=== PATIENT | male | born 1945 | race Caucasian/White ===

== ENCOUNTER → 2017-01-18 | Outpatient (CLI) | payer OTHER | END | disposition home or self-care (01) | LOC: PCVCIMAG 15:21 | PROVIDERS: ATTEND Internal Medicine Cardiovascular Disease | DX: I65.23 Occlusion and stenosis of bilateral carotid arteries (principal); E78.00 Pure hypercholesterolemia, unspecified; I25.5 Ischemic cardiomyopathy; I44.2 Atrioventricular block, complete; I25.10 Atherosclerotic heart disease of native coronary artery without angina pectoris; I10 Essential (primary) hypertension; Z95.1 Presence of aortocoronary bypass graft; Z95.0 Presence of cardiac pacemaker | CPT/HCPCS: 80061; 93880; G0463 ==

== ENCOUNTER → 2017-01-23 | Outpatient (CLI) | payer OTHER | END | disposition home or self-care (01) | LOC: PCVCIMAG 08:24 | PROVIDERS: ATTEND Internal Medicine Cardiovascular Disease | DX: I10 Essential (primary) hypertension (principal); E78.00 Pure hypercholesterolemia, unspecified; Z95.1 Presence of aortocoronary bypass graft; Z95.0 Presence of cardiac pacemaker | CPT/HCPCS: 93306 ==

== ENCOUNTER → 2017-10-17 | Outpatient (CLI) | payer OTHER | END | disposition home or self-care (01) | LOC: PCVCCLINIC 13:23 | PROVIDERS: ATTEND Internal Medicine Cardiovascular Disease | DX: I25.810 Atherosclerosis of coronary artery bypass graft(s) without angina pectoris (principal); I42.8 Other cardiomyopathies; I49.5 Sick sinus syndrome; I10 Essential (primary) hypertension; Z95.1 Presence of aortocoronary bypass graft; Z95.0 Presence of cardiac pacemaker; Z87.891 Personal history of nicotine dependence; Z79.82 Long term (current) use of aspirin; Z79.899 Other long term (current) drug therapy | CPT/HCPCS: 80061; 93005; G0463 ==

== ENCOUNTER → 2018-09-17 | Outpatient (CLI) | payer OTHER ==
--- NOTE | 2018-09-17 16:43 | PCVCIMAG ---
APPROVED REPORT Study performed: 09/17/2018 08:20:54 EXAM: Comprehensive 2D, Doppler, and color-flow Echocardiogram Patient Location: Echo lab Status: routine BSA: 1.95 HR: 67 bpmBP: 140/80 mmHg Rhythm: NSR Other Information Study Quality: Good Risk Factors: Cardiac Risk Factors: HTN, Hyperlipidemia, SOB Indications Pacemaker Hypertension/HDD CABG, Hyperlipidemia, Heart block 2D Dimensions IVSd: 11.06 (7-11mm)LVOT Diam: 21.13 (18-24mm) LVDd: 36.88 mm PWd: 9.57 (7-11mm)Ascending Ao: 39.56 (22-36mm) LVDs: 19.83 (25-40mm) Left Atrium: 33.84 (27-40mm) Aortic Root: 28.75 mm LV Single Plane 4CH: 41.43 % Volumes Left Atrial Volume (Systole) Single Plane 4CH: 48.97 mLSingle Plane 2CH: 66.23 mL LA ESV Index: 29.00 mL/m2 Aortic Valve AoV Peak Derrick.: 1.42 m/s AO Peak Gr.: 8.49 mmHgLVOT Max P.44 mmHg LVOT Mean P.69 mmHg LVOT Max V: 0.93 m/s LVOT Mean V: 0.60 m/s LVOT V1 VTI: 21.09 cm JAKE Vmax: 2.29 cm2 SV (LVOT): 73.91 mL Mitral Valve E/A Ratio: 1.1 MV Decel. Time: 380.84 ms MV E Max Derrick.: 1.25 m/s MV A Derrick.: 1.18 m/s Pulmonary Valve PV Peak Gr.: 3.41 mmHg Tricuspid Valve TR Peak Derrick.: 2.70 m/s TR Peak Gr.: 29.27 mmHg Left Ventricle The left ventricle is normal size. Apical hypokinesis. There is normal left ventricular wall thickness. Left ventricular systolic function is mildly decreased. LVEF is 45%. This study is not technically sufficient to allow evaluation of the LV diastolic function. Right Ventricle The right ventricle is normal size. The right ventricular systolic function is normal. Pacemaker lead is present in the right ventricle. Atria The left atrium size is normal. Pacemaker lead is present in the right atrium. Aortic Valve The Aortic valve is sclerotic. No aortic regurgitation is present. There is no aortic valvular stenosis. Mitral Valve Mitral valve leaflets are calcified. Mild to moderate mitral regurgitation. No evidence of mitral valve stenosis. Tricuspid Valve The tricuspid valve is normal in structure. Mild to moderate tricuspid regurgitation. Pulmonary artery pressure is 39mmHg. Pulmonic Valve The pulmonary valve is normal in structure. There is no pulmonic valvular regurgitation. Great Vessels The aortic root is normal in size. The ascending aorta is borderline dilated measuring 4.0cm. IVC is normal in size and collapses >50% with inspiration. Pericardium There is no pericardial effusion. <Conclusion> Left ventricular systolic function is mildly decreased. LVEF is 45%. This study is not technically sufficient to allow evaluation of the LV diastolic function. The right ventricle is normal size. The left atrium size is normal. The Aortic valve is sclerotic. There is no aortic valvular stenosis. Mild to moderate mitral regurgitation. Mild to moderate tricuspid regurgitation. Pulmonary artery pressure is 39mmHg. The aortic root is normal in size. There is no pericardial effusion.
--- NOTE | 2018-09-17 16:47 | PCVCIMAG ---
APPROVED REPORT Imaging Protocol: Rest Tc-99m/Stress Tc-99m 1 day Study performed: 09/17/2018 09:09:34 Indication: CAD, Ischemic Cardiomyopathy, Chest Pressure, SOA Patient Location: Out-Patient Stress Nurse: Ivett Burns RN, Berta Sheth RN NM Tech:Dilip SilveiraKEMAR Ht: 6 ft 0 in Wt: 164 lbs BSA: 1.96 m2 HR: 70 bpm BP: 169/89 mmHg BMI: 22.2 Rhythm: Sinus Rhythm, First degree AV Block, Paced Medical History Medical History: Age,Hyperlipidemia, HTN, CVD, Former Smoker, Pacemaker Medications: ASA, Atorvastatin, Accupril, HCTZ Allergies: No known drug allergies Previous Cardiac Procedures: CABG Pretest Chest Pain Characteristics: No chest pain Exercise History: Physically active Resting Data Rest SPECT myocardial perfusion imaging was performed in supine position 45 minutes following the intravenous injection of 12 mCi of Tc-99m Sestamibi. Time of rest injection: 0900 Date: 09/17/2018 Administration Route: IV Administration Site: Right Hand Pharmacologic Stress Pharmacologic stress test was performed by injecting Regadenoson 0.4 mg IV push over 10-15 seconds immediately followed by the intravenous injection of 36 mCi of Tc-99m Sestamibi. Time of stress injection: 1005 Date: 09/17/2018 Administration Route: IV Administration Site: Right Hand Gated Stress SPECT was performed 45 minutes after stress injection. The images were gated to evaluate regional wall motion and calculate left ventricular ejection fraction. Stress Test Details Stress Test: Pharmacologic stress was paired with low level exercise. Reason for pharmacologic stress test: PPM. HRMax Heart Rate (APMHR): 149 bpm Resting HR: 70 bpmTarget HR (85% APMHR): 126 bpm Max HR Achieved: 99 bpm % of APMHR: 66 Recovery HR: 73 bpm BP Resting BP: 169/86 mmHg Recovery BP: 151/63 mmHg ECG Resting ECst degree AV block, Paced Stress ECst degree AV block, Paced Arrhythmia: None Recovery ECst degree AV block, Paced Clinical Reason for Termination: Completed protocol Stress Symptoms: Nausea Exercise duration: 4 min sec Symptoms resolved with caffeine. Stress ECG Conclusion non diagnostic paced Study Quality Study: Good Study Data Post stress, the left ventricular ejection was 52%.. SSS: 14 SRS: 13 SDS: 1 TID = 1.10. 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 No evidence of stress induced ischemia. 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 No evidence of stress induced ischemia. Post stress, the left ventricular ejection was 52%. No change since prior study dated January 2016. Interpreted by: Grant Schrader MD Electronically Approved: 09/17/2018 14:20:24 <Conclusion> non diagnostic paced
== END | disposition home or self-care (01) ==
LOC: PCVCIMAG 08:29
PROVIDERS: ATTEND Internal Medicine Cardiovascular Disease
DX: I25.810 Atherosclerosis of coronary artery bypass graft(s) without angina pectoris (principal); I42.8 Other cardiomyopathies; R07.89 Other chest pain; R06.02 Shortness of breath; I49.5 Sick sinus syndrome; I10 Essential (primary) hypertension; I08.1 Rheumatic disorders of both mitral and tricuspid valves; E78.5 Hyperlipidemia, unspecified; Z87.891 Personal history of nicotine dependence
CPT/HCPCS: 78452; 93017; 93306; A9500

== ENCOUNTER → 2019-03-05 | Outpatient (CLI) | payer OTHER | END | disposition home or self-care (01) | LOC: PCVCCLINIC 16:02 | PROVIDERS: ATTEND Internal Medicine Cardiovascular Disease | DX: I25.10 Atherosclerotic heart disease of native coronary artery without angina pectoris (principal); E78.00 Pure hypercholesterolemia, unspecified; I10 Essential (primary) hypertension; Z95.1 Presence of aortocoronary bypass graft; Z95.0 Presence of cardiac pacemaker; Z87.891 Personal history of nicotine dependence | CPT/HCPCS: 36415; 80061; 93280; G0463 ==